=== PATIENT | female | born 1985 | race Two or more races ===

== ENCOUNTER 2022-11-29 20:13 | Emergency (ER) | payer OTHER ==
[~2022-11-29] VITALS: Ht 172.7 cm; Wt 82.6 kg
[2022-11-29] MEDS ORDERED: [UNRECOGNIZED DRUG - REMARK] (20:30)
== END 2022-11-29 22:36 | disposition home or self-care (01) ==
LOC: ER 20:13
DX: M94.0 Chondrocostal junction syndrome [Tietze] (principal); Z88.8 Allergy status to other drugs, medicaments and biological substances; Z91.013 Allergy to seafood

== ENCOUNTER 2023-07-23 20:45 | Emergency (ER) | payer OTHER ==
[~2023-07-23] VITALS: Ht 172.7 cm; Wt 82.6 kg
[~2023-07-23 20:45] MED LIST: [UNRECOGNIZED DRUG - REMARK]
[2023-07-23] MEDS ORDERED: TOPROL XL50 M1 PO (21:08)
[2023-07-23] MEDS ORDERED: COZAAR25 MG PO (21:08)
[2023-07-23] MEDS ORDERED: TRICOR48 MG PO (21:09)
[2023-07-23] MEDS ORDERED: DICLOFENAC-MIS1 EAC3 PO (21:09)
[2023-07-23] MEDS ORDERED: GABAPENTIN100 M2 PO (21:09)
== END 2023-07-24 04:57 | disposition home or self-care (01) ==
LOC: ER 20:45
PROVIDERS: General Practice
DX: N20.0 Calculus of kidney (principal); Z91.013 Allergy to seafood; Z91.041 Radiographic dye allergy status; Z88.6 Allergy status to analgesic agent; I10 Essential (primary) hypertension

== ENCOUNTER 2023-07-24 14:15 | Emergency (ER) | payer OTHER ==
[~2023-07-24] VITALS: Ht 172.7 cm; Wt 82.6 kg
[~2023-07-24 14:15] MED LIST changes: +COZAAR25 MG PO; +DICLOFENAC-MIS1 EAC3 PO; +GABAPENTIN100 M2 PO; +TOPROL XL50 M1 PO; +TRICOR48 MG PO
== END 2023-07-24 17:30 | disposition home or self-care (01) ==
LOC: ER 14:15
DX: N23 Unspecified renal colic (principal); Z87.442 Personal history of urinary calculi; Z91.041 Radiographic dye allergy status; Z91.013 Allergy to seafood; Z88.6 Allergy status to analgesic agent
CPT/HCPCS: 96372; 99284; J1885